=== PATIENT | female | born 1980 | race Caucasian/White ===

== ENCOUNTER 2018-12-11 23:23 | Emergency (ER) | payer MEDICARE, MEDICAID ==
[~2018-12-11] VITALS: Ht 154.9 cm; Wt 69.5 kg
[2018-12-11 23:33] VITALS: TEMP 98.5
[2018-12-12] MEDS ORDERED: CRESTOR20 MG PO (00:46)
[2018-12-12] MEDS ORDERED: SINGULAIR 110 MG/TAB PO (00:47)
[2018-12-12] MEDS ORDERED: VISTARIL 2525 MG/CAP PO (00:47)
[2018-12-12] MEDS ORDERED: CLARITIN 1010 MG/TAB PO (00:47)
[2018-12-12] MEDS ORDERED: BUSPAR5 MG (00:47)
[2018-12-12] MEDS ORDERED: GLUCOTROL10 MG PO (00:47)
[2018-12-12] MEDS ORDERED: PLAQUENIL 200M200 MG PO (00:48)
[2018-12-12] MEDS ORDERED: NEXIUM 40MG40 MG PO (00:48)
[2018-12-12] MEDS ORDERED: EFFEXOR XR75 MG/CAP PO (00:48)
[2018-12-12] MEDS ORDERED: PRINIVIL5 MG PO (00:48)
[2018-12-12] MEDS ORDERED: NEURONTIN800 MG/TAB PO (00:49)
[2018-12-12] MEDS ORDERED: ZETIA 10MG TAB10 MG PO (00:49)
[2018-12-12] MEDS ORDERED: INTUNIV1 MG PO (00:49)
[2018-12-12] MEDS ORDERED: GLUCOPHAGE1000 MG PO (00:49)
[2018-12-12] MEDS ORDERED: FLONASE NASAL S16 GM NS (00:49)
[2018-12-12] MEDS ORDERED: ATARAX 25MG25 MG/TAB PO (00:57)
[2018-12-12] MEDS ORDERED: PEPCID 20MG TAB20 MG PO (00:57)
[2018-12-12 01:03] VITALS: BP 102/72; PULSE 93
== END 2018-12-12 01:03 | disposition home or self-care (01) ==
LOC: COL.ER 23:23
DX: L29.9 Pruritus, unspecified (principal); E11.9 Type 2 diabetes mellitus without complications; K21.9 Gastro-esophageal reflux disease without esophagitis; E78.5 Hyperlipidemia, unspecified; J45.909 Unspecified asthma, uncomplicated; Z88.5 Allergy status to narcotic agent; Z90.49 Acquired absence of other specified parts of digestive tract; Z79.84 Long term (current) use of oral hypoglycemic drugs; Z79.51 Long term (current) use of inhaled steroids